=== PATIENT | female | born 1935 ===

== ENCOUNTER 2018-11-14 15:37 | Inpatient (IN) | payer MEDICARE, OTHER ==
[~2018-11-14] VITALS: Ht 154.9 cm; Wt 73.5 kg
--- NOTE | 2018-11-14 15:42 | NUR ---
BIB private ambulance from [facility] on 515 hold (GD) for admission to MHU. Pt has already been medically cleared at sending facility per telephone report from [place].
[2018-11-14] MEDS ORDERED: LINA290C PO (16:17)
[2018-11-14] MEDS ORDERED: BISA10SU61 RC (16:17)
[2018-11-14] MEDS ORDERED: GABA600T12 PO (16:17)
[2018-11-14] MEDS ORDERED: LINA145C PO (16:17)
[2018-11-14] MEDS ORDERED: BUPR150T5 PO (16:17)
[2018-11-14] MEDS ORDERED: BACI1CAP4 PO (16:17)
[2018-11-14] MEDS ORDERED: HYOS0.1273 PO (16:17)
[2018-11-14] MEDS ORDERED: ACET325T53 PO (16:17)
[2018-11-14] MEDS ORDERED: NYST5ORA PO (16:17)
[2018-11-14] MEDS ORDERED: POLY17PO4 PO (16:17)
[2018-11-14] MEDS ORDERED: CELE200C PO (16:17)
[2018-11-14] MEDS ORDERED: METH150T PO (16:17)
[2018-11-14] MEDS ORDERED: HYDR28.316 RC (16:17)
[2018-11-14] MEDS ORDERED: HYDR30SU3 RC (16:17)
[2018-11-14] MEDS ORDERED: MELA1TAB9 PO (16:17)
[2018-11-14] MEDS ORDERED: OMEP40CA37 PO (16:17)
--- NOTE | 2018-11-14 16:20 | NUR ---
Per pt is medically clear and may be trans to MHU. Pt trans with NAD noted.
[2018-11-14 16:30] VITALS: BP_SYST 128; BP_DIAS 72; BP_DIAS 92
--- NOTE | 2018-11-14 16:30 | NUR ---
Received patient from ER accompanied by Preston paz. Patient not in acute distress but noted to be disheveled and unkempt. Patient is alert and oriented x 3. Patient stating she has not eaten for 6 days and feels very hungry, offered snack and ensured from dietary that she will be served dinner. Patient denying suicidal ideation, cooperative and answered questions. Staff offered to help her shower but patient declined. Will continue to monitor.
[2018-11-14] MEDS ORDERED: TEMAZEPAM 7.5 MG CAPSULE PO PRN (16:45)
[2018-11-14] MEDS ORDERED: LORAZEPAM 0.5 MG TABLET PO PRN (16:45)
[2018-11-14] MEDS ORDERED: MAG HYDROX/AL HYDROX/SIMETH 30 ML LIQUID UDC PO PRN (16:45)
[2018-11-14] MEDS: ACETAMINOPHEN 325 MG TABLET PO PRN ×2 (18:30→20:46)
--- NOTE | 2018-11-14 18:34 | NUR ---
Patient was complaining of rectal pain and offered tylenol but patient refused.
[2018-11-14 20:21] VITALS: BP 105/78
[2018-11-14] MEDS ORDERED: BISACODYL 10 MG SUPP.RECT RC PRN (20:30)
[2018-11-14] MEDS ORDERED: ZOLPIDEM 5 MG TABLET PO PRN (20:30)
[2018-11-14] MEDS ORDERED: HYDROCORTISONE 2.5 % RECTAL CREAM 28.35 GM TUBE RC PRN (20:30)
[2018-11-14] MEDS ORDERED: HYDROCORTISONE RECTAL SUPP 25 MG EACH RC ONE ×2 (21:35→22:30)
--- NOTE | 2018-11-15 05:51 | NUR ---
GPS: Remain calm and cooperative with medications and care. slept 6:45 hrs through the night after Ambien 5 mg po given. resting in bed comfortably.continue plan of care.
[2018-11-15] MEDS: PANTOPRAZOLE SODIUM 40 MG TABLET.DR PO SCH ×2 (06:27→06:39)
--- NOTE | 2018-11-15 07:30 | NUR ---
GPS: Received patient asleep in bed. Noted per fast food shift lead, patient slept well las night. Bed in low position and side rails up x 2. Will continue to monitor and ensure comfort and safety.
[2018-11-15] MEDS: MIRALAX 17 GM POWD.PACK PO SCH (08:41)
[2018-11-15] MEDS: HYOSCYAMINE SULFATE 0.125 MG TABLET PO SCH ×3 (08:41→16:58)
[2018-11-15] MEDS: CELECOXIB 200 MG CAPSULE PO SCH (08:41)
[2018-11-15] MEDS ORDERED: Medication Not On Formulary EA (Linaclotide (Linzess) 290 MCG) PO SCH (09:00)
[2018-11-15] MEDS: MAGNESIUM HYDROXIDE 30 ML LIQUID UDC PO PRN ×2 (09:46→23:29)
[2018-11-15] MEDS: buPROPion XL 150 MG TAB.SR.24H PO SCH (12:37)
--- NOTE | 2018-11-15 14:45 | NUR ---
Discharge Planning: fat pressroom worker attempted to conduct social service evaluation, however, patient refused to participate and asked manager social media to return at a later date.
[2018-11-15 16:31] VITALS: BP 114/49
--- NOTE | 2018-11-15 18:45 | NUR ---
GPS: Patient is lying in bed, calm. Alert and oriented x 3. Patient repeatedly asking for laxative throughout the day for her constipation, noted with 1 small bowel movement this afternoon. Noted need to send urine sample for urinalysis, patient uncooperative in collecting sample, placed hat at her toilet. Denies suicidal ideation. No episode of agitation or restlessness throughout the shift, however patient did not leave her room today. Ensured safety and comfort.
[2018-11-15 20:00] VITALS: BP 111/51
[2018-11-15] MEDS: TRAZODONE 50 MG TABLET PO SCH (20:40)
[2018-11-15] MEDS: PHENYLEPHRINE/SHARK LIVER/CCB 1 EACH SUPP.RECT RC SCH (21:18)
[2018-11-16] MEDS: PANTOPRAZOLE SODIUM 40 MG TABLET.DR PO SCH (06:43)
[2018-11-16 07:09] LABS: ALANINE AMINOTRANSFERASE 22 U/L (14-59); ALKALINE PHOSPHATASE 123 U/L (50-136); ASPARTATE AMINOTRANSFERASE 14 U/L (15-37); BILIRUBIN,TOTAL 0.4 mg/dL (0.2-1.0); CARBON DIOXIDE 26 mmol/L (21-32); CHLORIDE 101 mmol/L (98-107); CHOLESTEROL 210 mg/dL (<200); CREATININE 1.7 mg/dL (0.6-1.3); GLUCOSE 98 mg/dL (74-106); HDL CHOLESTEROL 44 mg/dL (40-60); POTASSIUM 3.6 mmol/L (3.5-5.1); TOTAL PROTEIN, SERUM 6.1 g/dL (6.4-8.2); TRIGLYCERIDES 141 MG/DL (30-150); UREA NITROGEN, BLOOD 34 mg/dL (7-18)
[2018-11-16 07:11] LABS: THYROID STIMULATING HORMONE 2.207 mIU/mL (0.358-3.740)
[2018-11-16 07:30] VITALS: BP 83/44
[2018-11-16] MEDS: HYOSCYAMINE SULFATE 0.125 MG TABLET PO SCH ×3 (08:08→16:26)
[2018-11-16] MEDS: buPROPion XL 150 MG TAB.SR.24H PO SCH (08:08)
[2018-11-16] MEDS: MIRALAX 17 GM POWD.PACK PO SCH (08:08)
[2018-11-16] MEDS: CELECOXIB 200 MG CAPSULE PO SCH (08:08)
--- NOTE | 2018-11-16 14:55 | NUR ---
upon assessment, noted patients blood pressure was 96/43 heart rate, 71. patient denies any dizziness, nausea, or weakness. patient stated she just used the restroom and had a lot of diarrhea. patient is asymptomatic and shows no present sign/symptoms. educated patient to drink more fluids. will continue to monitor closely.
[2018-11-16 15:51] VITALS: BP 75/50
[2018-11-16 19:40] VITALS: BP 91/52
[2018-11-16] MEDS: TRAZODONE 50 MG TABLET PO SCH (20:22)
[2018-11-16] MEDS: ATORVASTATIN 10 MG TABLET PO SCH (20:22)
[2018-11-16] MEDS: PHENYLEPHRINE/SHARK LIVER/CCB 1 EACH SUPP.RECT RC SCH (20:22)
[2018-11-17] MEDS: PANTOPRAZOLE SODIUM 40 MG TABLET.DR PO SCH (06:10)
--- NOTE | 2018-11-17 06:36 | NUR ---
Patient is delusional. Complained of the script writer not being at the bedside the whole night. However, patient is alert and oriented x3. Denies SI. Compliant with medications. No adverse reaction noted.
[2018-11-17 07:30] VITALS: BP 90/51
[2018-11-17] MEDS: CELECOXIB 200 MG CAPSULE PO SCH (08:19)
[2018-11-17] MEDS: buPROPion XL 150 MG TAB.SR.24H PO SCH (08:19)
[2018-11-17] MEDS: HYOSCYAMINE SULFATE 0.125 MG TABLET PO SCH ×3 (08:19→16:16)
[2018-11-17] MEDS: MIRALAX 17 GM POWD.PACK PO SCH (08:20)
--- NOTE | 2018-11-17 08:40 | NUR ---
PT REQUESTED BY-PASS 14 DAYS HOLD JESSICA, COURT NOTIFIED WILL FAX JESSICA REQUEST TO COURT. Addendum: 11/17/18 at 1216 by ROXANNE DE LOS SANTOS RN ERROR ,WRONG PATIENT.
--- NOTE | 2018-11-17 12:09 | NUR ---
Initial Discharge Note: Patient is a 83 year old female who currently resides in her home alone [[address] [place] [address]]. Per patient, she would like to return to living at her home. Patient states she is able to provide herself with food, clothing and mcfp. Patient states she only stated she couldn't provide for these things because she was "tired of responsibility". Patient states that when she returns home, she does not want home health. Patient also states that she will be able to pay for a taxi back home. cloth worker will continue to collaborate with patient and MD on a safe and proper discharge.
[2018-11-17 16:16] VITALS: BP 91/57
--- NOTE | 2018-11-17 16:42 | NUR ---
1640H, PATIENTS ALERT, DENIES OF ANY PAIN AND DISCOMFORT.
[2018-11-17 20:03] VITALS: BP 115/52
[2018-11-17] MEDS: TRAZODONE 100 MG TABLET PO SCH (20:08)
[2018-11-17] MEDS: MAGNESIUM HYDROXIDE 30 ML LIQUID UDC PO PRN (20:08)
[2018-11-17] MEDS: ATORVASTATIN 10 MG TABLET PO SCH (20:08)
[2018-11-17] MEDS: PHENYLEPHRINE/SHARK LIVER/CCB 1 EACH SUPP.RECT RC SCH (20:45)
[2018-11-17] MEDS ORDERED: TRAZODONE 50 MG TABLET PO SCH (21:00)
--- NOTE | 2018-11-17 23:41 | NUR ---
gps: patient c/o anxiety. ativan 0.5 mg po given per patient requested.
--- NOTE | 2018-11-18 05:42 | NUR ---
GPS: REMAIN CALM AND COOPERATIVE. SLEPT 6 HRS THROUGH THE NIGHT. NO AGITATION NOTED AT THIS TIME. CONTINUE PLAN OF CARE.
[2018-11-18] MEDS: PANTOPRAZOLE SODIUM 40 MG TABLET.DR PO SCH (06:20)
[2018-11-18 07:30] VITALS: BP 106/28
[2018-11-18] MEDS: buPROPion XL 150 MG TAB.SR.24H PO SCH (09:05)
[2018-11-18] MEDS: MIRALAX 17 GM POWD.PACK PO SCH (09:05)
[2018-11-18] MEDS: HYOSCYAMINE SULFATE 0.125 MG TABLET PO SCH ×3 (09:05→16:38)
[2018-11-18] MEDS: CELECOXIB 200 MG CAPSULE PO SCH (09:05)
--- NOTE | 2018-11-18 12:01 | NUR ---
Firearms Report: lavender farm worker completed and submitted a [employer] firearms report for a 5250 GD certification.
[2018-11-18 12:21] VITALS: BP 84/54
[2018-11-18 16:00] VITALS: BP 110/51
--- NOTE | 2018-11-18 16:00 | NUR ---
Gps/Cook Italian Style Food- Had been interacting fairly well with her selected peers. Ambulates around with front wheel walker, safety reviewed and emphasized. Patient noted , likes to ambulates around with front wheel walker, socks/slippers offered.
[2018-11-18] MEDS: ATORVASTATIN 10 MG TABLET PO SCH (20:03)
[2018-11-18] MEDS: TRAZODONE 100 MG TABLET PO SCH (20:03)
[2018-11-18] MEDS: PHENYLEPHRINE/SHARK LIVER/CCB 1 EACH SUPP.RECT RC SCH (20:07)
[2018-11-18 21:21] VITALS: BP 120/55
[2018-11-18 21:28] LABS: *CREATININE,URINE 22.1 mg/dL (30-125); *URINE TOTAL PROTEIN RANDOM < 6.0 mg/dL (<150/24HR)
[2018-11-18 21:36] LABS: *BILIRUBIN,URIN NEGATIVE (NEGATIVE); *BLOOD, URINE Trace-lysed (NEGATIVE); *CLARITY,URINE CLEAR (CLEAR); *COLOR,URINE LIGHT YELLOW (YELLOW); *KETONES,URINE NEGATIVE (NEGATIVE); *PROTEIN,URINE NEGATIVE (NEGATIVE); *UROBILINOGEN,URINE 0.2 E.U./dl (NORMAL); LEUKOCYTE ESTERASE ,URINE NEGATIVE (NEGATIVE); NITRITE, URINE NEGATIVE (NEGATIVE); UGLUCOSE NEGATIVE (NEGATIVE)
[2018-11-18 21:45] LABS: RBC,URINE 0-3 /HPF (0-3); SQUAMOUS EPITHELIAL CELL,UR FEW /HPF (NONE SEEN); WBC,URINE 0-3 /HPF (0-3)
[2018-11-19] MEDS: PANTOPRAZOLE SODIUM 40 MG TABLET.DR PO SCH (06:15)
--- NOTE | 2018-11-19 06:20 | NUR ---
GPS: REMAIN CALM AND COOPERATIVE WITH MEDICATIONS AND CARE. NO AGITATION NOTED AT THIS TIME. NO C/O PAIN OR DISCOMFORT AT THIS TIME.DENIES SI @ THIS TIME. RESTING IN BED COMFORTABLY.
[2018-11-19 07:30] VITALS: BP 126/57
[2018-11-19] MEDS: HYOSCYAMINE SULFATE 0.125 MG TABLET PO SCH ×3 (08:09→17:39)
[2018-11-19] MEDS: MIRALAX 17 GM POWD.PACK PO SCH (08:12)
[2018-11-19] MEDS: CELECOXIB 200 MG CAPSULE PO SCH (08:12)
[2018-11-19] MEDS: buPROPion XL 150 MG TAB.SR.24H PO SCH (08:12)
--- NOTE | 2018-11-19 11:34 | NUR ---
Gps/Parts Department Supervisor- Reviewed medications, diet, safety, emphasized follow up with her Doctors, patient and daughters verbalized understanding. All belongings and patient's own medications(eye gtts) returned back to patient.Patient in good spirit, no new c/o offered at this time. Addendum: 11/19/18 at 1245 by VENANCIO ROE LVN Charted on a wrong patient
--- NOTE | 2018-11-19 15:20 | NUR ---
Gps/Ski Patrol Officer- Patient remains in her room in bed, refusing to attend her group therapy, claimed she does not feel good, v/s stable not initiating any simple tasks to assist self, encouraged to comb her hair, fluids offered and encouraged
--- NOTE | 2018-11-19 15:33 | NUR ---
Discharge Planning: Patient was scheduled to discharge today and return home with home health. However, when approached by Dr. Davis about discharge, patient stated she wasn't feeling well and couldn't return home. insulation worker joined Dr. Davis in a second conversation about discharge at patient bedside. Patient again stated that she felt "sick" and stated "I am dying". Patient further stated she could not return to her home. Dr. Davis asked patient to sign as voluntary, but patient refused so was placed on a 14-day hold (1298). Patient is perceived to be manipulative. insulation worker has begun to look for SNF placement for patient as she has stated she can't return home. insulation worker sent referrals to [facility] [place] [facility] [[address] [place] [address]; ] and [facility] [[address] [place] [address]; ]. insulation worker awaiting response from facilities.
[2018-11-19] MEDS: ACETAMINOPHEN 325 MG TABLET PO PRN (15:35)
[2018-11-19 16:00] VITALS: BP 114/59
--- NOTE | 2018-11-19 17:45 | NUR ---
Gps/Roller Coaster Engineer- Poor initiation , claimed she does not feel weel, reassure v/s stable, needed to eat and drink fluids, encouraged. Set up for dinner, assisted with her food few bites tolerated fairly well. Claimed she's worried she didnt have BM today, reminded pt. she had 2 bowel good movement yesterday .
[2018-11-19] MEDS: PHENYLEPHRINE/SHARK LIVER/CCB 1 EACH SUPP.RECT RC SCH (21:00)
[2018-11-19] MEDS: TRAZODONE 100 MG TABLET PO SCH (21:16)
[2018-11-19] MEDS: ATORVASTATIN 10 MG TABLET PO SCH (21:16)
[2018-11-19 21:21] VITALS: BP 100/50
[2018-11-19] MEDS: MAGNESIUM HYDROXIDE 30 ML LIQUID UDC PO PRN (21:29)
[2018-11-20] MEDS: PANTOPRAZOLE SODIUM 40 MG TABLET.DR PO SCH (06:56)
[2018-11-20 07:30] VITALS: BP 105/34
[2018-11-20] MEDS: HYOSCYAMINE SULFATE 0.125 MG TABLET PO SCH ×3 (08:35→16:47)
[2018-11-20] MEDS: buPROPion XL 150 MG TAB.SR.24H PO SCH (08:36)
[2018-11-20] MEDS: MIRALAX 17 GM POWD.PACK PO SCH (08:36)
[2018-11-20] MEDS: CELECOXIB 200 MG CAPSULE PO SCH (08:36)
--- NOTE | 2018-11-20 11:34 | NUR ---
Gps/Sql Developer- Remains with poor motivations, encouraged to get oob to shower, go to actibity room attend group therapy, needed prompting to eat aswell as to take routine meds, flat affect, patient wants to be left alone . Patient to have someone fhelp her fixed in bed, informed pt. she can move,and able to repositioned self in bed. Verbalized feelings of being upset, no one wants to help her/pt. Patient was instructed /encouraged to be ind. in her self care.
[2018-11-20 16:00] VITALS: BP 115/57
[2018-11-20] MEDS: ATORVASTATIN 10 MG TABLET PO SCH (20:24)
[2018-11-20] MEDS: TRAZODONE 100 MG TABLET PO SCH (20:24)
[2018-11-20] MEDS: PHENYLEPHRINE/SHARK LIVER/CCB 1 EACH SUPP.RECT RC SCH (20:27)
[2018-11-20] MEDS: ACETAMINOPHEN 325 MG TABLET PO PRN (21:31)
[2018-11-20 22:53] VITALS: BP 113/61
--- NOTE | 2018-11-21 03:33 | NUR ---
Patient received in bed, able to make needs known, depressive mood, flat affect. Medication given as ordered, well tolerated. Asked for help to go to the bathroom. assisted her. Complained of abdominal cramp and excess gas. Tylenol 650 mg and Maalox Suspension 30 ml given @2200.
[2018-11-21] MEDS: PANTOPRAZOLE SODIUM 40 MG TABLET.DR PO SCH (06:53)
[2018-11-21 07:30] VITALS: BP 100/47
[2018-11-21] MEDS: MIRALAX 17 GM POWD.PACK PO SCH (08:59)
[2018-11-21] MEDS: buPROPion XL 150 MG TAB.SR.24H PO SCH (08:59)
[2018-11-21] MEDS: HYOSCYAMINE SULFATE 0.125 MG TABLET PO SCH ×3 (08:59→17:44)
[2018-11-21] MEDS: CELECOXIB 200 MG CAPSULE PO SCH (08:59)
[2018-11-21 10:39] LABS: CARBON DIOXIDE 27 mmol/L (21-32); CHLORIDE 104 mmol/L (98-107); CREATININE 1.7 mg/dL (0.6-1.3); GLUCOSE 198 mg/dL (74-106); POTASSIUM 4.2 mmol/L (3.5-5.1); UREA NITROGEN, BLOOD 29 mg/dL (7-18)
[2018-11-21 16:00] VITALS: BP 116/45
[2018-11-21] MEDS: MAGNESIUM HYDROXIDE 30 ML LIQUID UDC PO PRN (20:03)
[2018-11-21] MEDS: TRAZODONE 100 MG TABLET PO SCH (20:03)
[2018-11-21] MEDS: ATORVASTATIN 10 MG TABLET PO SCH (20:03)
[2018-11-21] MEDS: PHENYLEPHRINE/SHARK LIVER/CCB 1 EACH SUPP.RECT RC SCH (20:07)
[2018-11-21 20:30] VITALS: BP 117/68
--- NOTE | 2018-11-22 05:57 | NUR ---
GPS: REMAIN CALM AND COOPERATIVE WITH MEDICATIONS AND CARE. NO AGITATION NOTED AT THIS TIME. NO C/O PAIN OR DISCOMFORT AT THIS TIME. MOM EFFECTIVE PATIENT HAD LARGE BM. DENIES SI @ THIS TIME. RESTING IN BED COMFORTABLY. SLEPT 6:30 HRS THROUGH THE NIGHT.
[2018-11-22] MEDS: PANTOPRAZOLE SODIUM 40 MG TABLET.DR PO SCH (06:11)
[2018-11-22 07:30] VITALS: BP 95/51
[2018-11-22 07:44] LABS: BASOPHILS # (AUTO) 0.1 K/uL (0.0-8.0); BASOPHILS % (AUTO) 0.7 % (0.0-2.0); EOSINOPHILS # (AUTO) 0.3 K/uL (0.0-0.7); EOSINOPHILS % (AUTO) 3.7 % (0.0-7.0); HEMATOCRIT 38.4 % (31.2-41.9); HEMOGLOBIN 12.7 g/dL (10.9-14.3); LYMPHOCYTES # (AUTO) 2.3 K/uL (20.0-40.0); MEAN CORPUSCULAR HEMOGLOBIN 29.7 uug (24.7-32.8); MEAN CORPUSCULAR HGB CONC 33 g/dL (32.3-35.6); MEAN CORPUSCULAR VOLUME 89.9 fL (75.5-95.3); MONOCYTES # (AUTO) 0.7 K/uL (2.0-10.0); NEUTROPHILS # (AUTO) 4.3 K/uL (1.8-8.9); NEUTROPHILS % (AUTO) 56.6 % (38.5-71.5); PLATELET COUNT (AUTO) 210 K/uL (179-408); RED BLOOD CELL COUNT(AUTO) 4.27 MIL/uL (3.63-4.92); WHITE BLOOD COUNT (AUTO) 7.6 K/uL (3.8-11.8)
[2018-11-22 08:08] LABS: ALANINE AMINOTRANSFERASE 18 U/L (14-59); ALKALINE PHOSPHATASE 113 U/L (50-136); ASPARTATE AMINOTRANSFERASE 13 U/L (15-37); BILIRUBIN,TOTAL 0.3 mg/dL (0.2-1.0); CARBON DIOXIDE 30 mmol/L (21-32); CHLORIDE 105 mmol/L (98-107); CREATININE 1.9 mg/dL (0.6-1.3); GLUCOSE 100 mg/dL (74-106); MAGNESIUM 2.3 mg/dL (1.8-2.4); PHOSPHOROUS 3.4 mg/dL (2.5-4.9); POTASSIUM 4.3 mmol/L (3.5-5.1); TOTAL PROTEIN, SERUM 6.3 g/dL (6.4-8.2); UREA NITROGEN, BLOOD 28 mg/dL (7-18)
[2018-11-22] MEDS: buPROPion XL 150 MG TAB.SR.24H PO SCH (08:18)
[2018-11-22] MEDS: HYOSCYAMINE SULFATE 0.125 MG TABLET PO SCH ×3 (08:19→17:35)
[2018-11-22] MEDS: CELECOXIB 200 MG CAPSULE PO SCH (08:19)
[2018-11-22] MEDS: MIRALAX 17 GM POWD.PACK PO SCH (08:20)
[2018-11-22] MEDS ORDERED: IV NS 1000 ML 1,000 ML IV ONE (09:00)
--- NOTE | 2018-11-22 12:00 | NUR ---
PT IS CONTINUING TO REFUSE IV FLUIDS. "I DONT NEED ANY OF THAT, YOU DONT UNDERSTAND ANYTHING" EXPLAINED IMPORTANCE OF IV FLUIDS, PT CONTINUES TO REFUSE. DR VARGAS AWARE PT IS REFUSING, WILL ENCOURAGE PO INTAKE.
--- NOTE | 2018-11-22 12:20 | NUR ---
Discharge Planning: Patient has been denied placement by [facility] SNF [phone]; contact: LORENA, network development coordinator] and [facility] [phone]; contact: Aron, network development coordinator] due to insurance. Patient was admitted under Medicare, but her insurance with the New Year and it is now managed Medicare through [facility] [[phone]]. Per our early childhood education coordinator, JOSH, no authorization is needed, but if patient needs outpatient follow-up then it should be arranged through [facility]. grout worker continuing to look for SNF placement and has sent fax to [facility] [[address] [place] [address]; ]. grout worker awaiting response.
--- NOTE | 2018-11-22 15:23 | NUR ---
Discharge Planning: reinforcing iron worker helper had extensive conversation with patient regarding admission in the MHU and expectation to attend group. Patient has not attended group since beginning of admission. reinforcing iron worker helper along with Kenyatta, recreational therapist, spoke with patient and encouraged participation in group. Per patient, she states "I am sick and my hair is tangled". Patient refused to attend. reinforcing iron worker helper offered patient to attend to group scheduled later toward the evening and patient agreed to go. reinforcing iron worker helper had separate conversation with patient regarding discharge plan. Patient again stated "I am sick". reinforcing iron worker helper asked patient to elaborate and patient stated "I am continually nauseas and have sores in my mouth". Per patient chart, patient has received Maalox Suspension on 11/20/2018 for upset stomach. Patient has not received any other medications for nausea, nor have any been requested by patient. reinforcing iron worker helper asked patient how this prevents self-care and patient stated "I am sick". reinforcing iron worker helper offered to help patient get assistance in her home with a caregiver and patient states "I can't afford it". reinforcing iron worker helper offered patient home health services and patient stated "I don't know". Patient is perceived to be manipulative. reinforcing iron worker helper [facility] [[phone]] agency service representative, Yohana [ref#[phone]], who provided a list of contracted senior care facilities including [facility] [[address] [place] [address]; /fax: [phone]], [facility] [[address] [place] [address]; /fax: ], and [facility] [[address] [place] [address]; /fax: ]. reinforcing iron worker helper sent fax referrals to all of these facilities and is currently awaiting return response. Addendum: 11/22/18 at 1631 by ANGELICA RESENDIZ Additional Information: Patient refused to go to evening group when offered despite original agreement to attending. Per patient, she will attend group tomorrow.
[2018-11-22 15:30] VITALS: BP 122/43
[2018-11-22 20:18] VITALS: BP 126/56
[2018-11-22] MEDS: QUETIAPINE FUMARATE 25 MG TABLET PO SCH (21:13)
[2018-11-22] MEDS: PHENYLEPHRINE/SHARK LIVER/CCB 1 EACH SUPP.RECT RC SCH (21:15)
[2018-11-22] MEDS: ATORVASTATIN 10 MG TABLET PO SCH (21:15)
--- NOTE | 2018-11-22 21:20 | NUR ---
Recieved report from am shift Rn. Pt lying in bed refusing to attend any groups medication complaint with hs meds. Client focusing on her bowels requesting M.O.M. advised pt she had 2 bms and afternoon bm was loose. Also advised that I would not administer M.O.M without my Charge Nurse consent. Notified Charge nurse which she is not to get M.O.M.
[2018-11-23] MEDS: PANTOPRAZOLE SODIUM 40 MG TABLET.DR PO SCH (06:36)
--- NOTE | 2018-11-23 06:41 | NUR ---
Awake in bed slept 8 hour through the night. medication compliant for her protonix this am.
[2018-11-23 07:30] VITALS: BP 107/49
[2018-11-23] MEDS: HYOSCYAMINE SULFATE 0.125 MG TABLET PO SCH ×3 (08:00→17:24)
[2018-11-23] MEDS: MIRALAX 17 GM POWD.PACK PO SCH (09:00)
[2018-11-23] MEDS: buPROPion XL 150 MG TAB.SR.24H PO SCH ×2 (09:00→12:20)
--- NOTE | 2018-11-23 11:09 | NUR ---
Discharge Planning: table worker packager had discussion with patient at bedside regarding group attendance and discharge planning. table worker packager reminded patient of her "promise" from yesterday (11/22-see DC note) that she would attend group today. Patient states "Why do I have to attend group anyway?". table worker packager explained that as a patient of the mental health unit, that it it part of her treatment. Patient stated "I don't even need to be here for mental health". Patient then stated she does not want to attend group as she uses a walker. Patient states "I can't walk", though social problems specialist witnessed patient walk on 11/19/2017. table worker packager asked that patient sit in community room for group even if she does not participate. Patient agreed and social problems specialist will remind patient again when the group is starting. table worker packager then facilitated conversation about discharge plan. Patient states "I can't go back home because I have to use a walker to get to the bathroom". Patient states "I want a group home facility". table worker packager informed patient that the option of a group home facility is dependent upon her insurance [which is now [employer] due to patient Medicare expiring on 11/16/2018] and upon having a skilled need. Patient did not respond. table worker packager is still waiting to hear back from three contracted facilities [see previous DC note].
--- NOTE | 2018-11-23 13:08 | NUR ---
Discharge Planning: farmworkers received return phone call from Alvaro at [facility]. Per Alvaro, he would like to come and asses patient today for potential SNF acceptance.
[2018-11-23 16:00] VITALS: BP 110/56
[2018-11-23 20:00] VITALS: BP 129/58
[2018-11-23] MEDS: QUETIAPINE FUMARATE 25 MG TABLET PO SCH (20:17)
[2018-11-23] MEDS: PHENYLEPHRINE/SHARK LIVER/CCB 1 EACH SUPP.RECT RC SCH (20:17)
[2018-11-23] MEDS: ATORVASTATIN 10 MG TABLET PO SCH (20:17)
[2018-11-23] MEDS: MAGNESIUM HYDROXIDE 30 ML LIQUID UDC PO PRN (20:26)
[2018-11-24] MEDS: PANTOPRAZOLE SODIUM 40 MG TABLET.DR PO SCH (06:38)
[2018-11-24 07:30] VITALS: BP 116/66
[2018-11-24] MEDS: HYOSCYAMINE SULFATE 0.125 MG TABLET PO SCH ×3 (08:47→17:18)
[2018-11-24] MEDS: buPROPion XL 150 MG TAB.SR.24H PO SCH (08:48)
[2018-11-24] MEDS: MIRALAX 17 GM POWD.PACK PO SCH (08:48)
--- NOTE | 2018-11-24 13:00 | NUR ---
GROUP NOTE: SW offered patient to attend group today. Patient replied, "Thank you." When asked if patient wanted to attend, she refused. ASTRID will continue to encourage pt to attend group during scheduled time in the future.
--- NOTE | 2018-11-24 15:19 | NUR ---
Discharge Planning: Patient was not accepted at [facility] [[address] [place] [address]; /fax: ] per admissions Olegario prieto. Patient will be assessed today by Sayra, patient relations coordinator, at [facility] [[address] [place] [address]; /fax: ] today at 4:00pm. Patient is now thinking she would like to return home with home health per conversation with patient MD, Dr. Davis.
[2018-11-24 16:02] VITALS: BP 115/52
[2018-11-24] MEDS ORDERED: MAGNESIUM HYDROXIDE 30 ML LIQUID UDC PO PRN (17:15)
[2018-11-24 19:58] VITALS: BP 136/60
--- NOTE | 2018-11-24 20:00 | NUR ---
RECEIVED PATIENT IN HER ROOM IN BED. SHE IS NOTED AWAKE A/O X 2. SHE IS ABLE TO AMBULATE TO A WALKER AND ABLE TO MAKE HER NEEDS KNOWN. SHE IS NOTED EASILY IRRITABLE/BLUNTED AFFECT LABILE BX. CONTINUE PREOCCUPIED WITH BM. CONTINUES ASKING FOR LAXATIVES. PT WAS REASSURED AND REDIRECTED. V/S STABLE AT THIS TIME. PATIENT WAS REASSURED OF HER SAFETY. WILL CONTINUE TO MONITOR CLOSELY.
[2018-11-24] MEDS: ATORVASTATIN 10 MG TABLET PO SCH (20:32)
[2018-11-24] MEDS: PHENYLEPHRINE/SHARK LIVER/CCB 1 EACH SUPP.RECT RC SCH (20:32)
[2018-11-24] MEDS: QUETIAPINE FUMARATE 25 MG TABLET PO SCH (20:32)
[2018-11-25 07:00] LABS: BASOPHILS # (AUTO) 0.1 K/uL (0.0-8.0); BASOPHILS % (AUTO) 0.9 % (0.0-2.0); EOSINOPHILS # (AUTO) 0.4 K/uL (0.0-0.7); EOSINOPHILS % (AUTO) 4.7 % (0.0-7.0); HEMATOCRIT 37.7 % (31.2-41.9); HEMOGLOBIN 12.7 g/dL (10.9-14.3); LYMPHOCYTES # (AUTO) 2.6 K/uL (20.0-40.0); LYMPHOCYTES % (AUTO) 33.6 % (20.5-51.5); MEAN CORPUSCULAR HEMOGLOBIN 30.3 uug (24.7-32.8); MEAN CORPUSCULAR HGB CONC 34 g/dL (32.3-35.6); MEAN CORPUSCULAR VOLUME 89.8 fL (75.5-95.3); MONOCYTES # (AUTO) 0.6 K/uL (2.0-10.0); NEUTROPHILS # (AUTO) 4.1 K/uL (1.8-8.9); NEUTROPHILS % (AUTO) 52.8 % (38.5-71.5); PLATELET COUNT (AUTO) 207 K/uL (179-408); WHITE BLOOD COUNT (AUTO) 7.8 K/uL (3.8-11.8)
[2018-11-25 07:17] LABS: ALANINE AMINOTRANSFERASE 18 U/L (14-59); ALKALINE PHOSPHATASE 109 U/L (50-136); ASPARTATE AMINOTRANSFERASE 11 U/L (15-37); BILIRUBIN,TOTAL 0.3 mg/dL (0.2-1.0); CARBON DIOXIDE 27 mmol/L (21-32); CHLORIDE 108 mmol/L (98-107); CREATININE 1.5 mg/dL (0.6-1.3); GLUCOSE 89 mg/dL (74-106); MAGNESIUM 2.4 mg/dL (1.8-2.4); PHOSPHOROUS 3.6 mg/dL (2.5-4.9); POTASSIUM 4.6 mmol/L (3.5-5.1); TOTAL PROTEIN, SERUM 6.3 g/dL (6.4-8.2); UREA NITROGEN, BLOOD 25 mg/dL (7-18)
[2018-11-25] MEDS: PANTOPRAZOLE SODIUM 40 MG TABLET.DR PO SCH (07:18)
--- NOTE | 2018-11-25 07:28 | NUR ---
PATIENT SLEPT FOR APPROX 6.30 HRS THROUGHOUT THE NIGHT. CONTINUE EASILY IRRITABLE, VERBALLY ABUSIVE. SHE ACCUSED THIS SCREEN REPAIRER CRUSHER OF NOT GIVEN HER SUPPOSITORY FOR HER HEMORRHOIDS. MULTIPLE REDIRECTION GIVEN, YET INEFFECTIVE. WILL CONTINUE TO MONITOR.
[2018-11-25 07:30] VITALS: BP 118/59
[2018-11-25] MEDS: HYOSCYAMINE SULFATE 0.125 MG TABLET PO SCH ×3 (08:51→17:48)
[2018-11-25] MEDS: buPROPion XL 150 MG TAB.SR.24H PO SCH (08:51)
[2018-11-25] MEDS: MIRALAX 17 GM POWD.PACK PO SCH (08:52)
--- NOTE | 2018-11-25 11:42 | NUR ---
Discharge Planning: tipple worker called [facility] [[phone]] to arrange home health for patient. tipple worker was transferred to multiple people, but was finally transferred to correct person, Beatris [[phone]], who handles patients in "Region [place]". tipple worker left voicemail for Beatris indicating nature of call and requested return phone call. tipple worker awaiting call back.
--- NOTE | 2018-11-25 14:44 | NUR ---
Discharge Planning: experimental worker followed up on SNF inquiries. Per admissions department at [facility] [[address] [place] [address]; ], patient is not accepted due to behavioral issues. experimental worker in contact with Sayra, team coordinator, at [facility] [[address] [place] [address]; ] who states that patient has been "clinically approved" but that the facility currently has no beds available so cannot start the authorization process until 11/29/18. experimental worker to check back in with Sayra on Thursday.
--- NOTE | 2018-11-25 14:50 | NUR ---
Discharge Planning: dam worker, accompanied by Dr. Davis, had conversation with patient about discharge plan. dam worker offered patient two choices of possibly going to a SNF pending insurance authorization and accepting facility or returning to her home with home health. Per patient, she states she feels "awful" and has "diarrhea". When asked how she was feeling mentally, patient did not answer. Patient was told that she would eventually have to discharge from mental health unit and that her medical issues can be treated as an outpatient as she was medically cleared to be in MHU initially. Patient continued to state "I don't feel good". Patient is perceived as manipulative. dam worker asked medical MD to have additional consultation with patient regarding her medical complaints. dam worker will continue to collaborate with patient and MD and plan for a safe and proper discharge for patient.
[2018-11-25 16:11] VITALS: BP 125/71
--- NOTE | 2018-11-25 19:35 | NUR ---
RECEIVED PATIENT IN HER ROOM IN BED. SHE IS NOTED AWAKE A/O X 3. UPON APPROACHED, SHE IS NOTED IRRITABLE, DEMANDING, MANIPULATIVE VERBALLY AGGRESSIVE WITH STAFF AND ARGUMENTATIVE. PATIENT WAS REASSURED FOR HER SAFETY, SHE WAS ALSO ENCOURAGE TO VERBALIZED FEELINGS. PATIENT ABLE TO AMBULATE WITH STEADY GAIT WITH THE AID OF A FWW. V/S STABLE AT THIS TIME. WILL CONTINUE TO MONITOR.
[2018-11-25] MEDS: ATORVASTATIN 10 MG TABLET PO SCH (20:41)
[2018-11-25 21:00] VITALS: BP 138/75
[2018-11-25] MEDS ORDERED: QUETIAPINE FUMARATE 25 MG TABLET PO SCH (21:00)
[2018-11-25] MEDS ORDERED: QUETIAPINE FUMARATE 100 MG TABLET PO SCH (21:00)
[2018-11-25] MEDS: PHENYLEPHRINE/SHARK LIVER/CCB 1 EACH SUPP.RECT RC SCH (21:06)
[2018-11-25] MEDS: ACETAMINOPHEN 325 MG TABLET PO PRN (21:09)
[2018-11-25 23:41] LABS: *BILIRUBIN,URIN NEGATIVE (NEGATIVE); *BLOOD, URINE NEGATIVE (NEGATIVE); *CLARITY,URINE CLEAR (CLEAR); *COLOR,URINE YELLOW (YELLOW); *KETONES,URINE NEGATIVE (NEGATIVE); *PROTEIN,URINE NEGATIVE (NEGATIVE); *UROBILINOGEN,URINE 0.2 E.U./dl (NORMAL); LEUKOCYTE ESTERASE ,URINE NEGATIVE (NEGATIVE); NITRITE, URINE NEGATIVE (NEGATIVE); UGLUCOSE NEGATIVE (NEGATIVE)
[2018-11-25 23:47] LABS: *URINE TOTAL PROTEIN RANDOM < 6.0 mg/dL (<150/24HR); BACTERIA,URINE NONE SEEN /HPF (NONE SEEN); RBC,URINE 0-3 /HPF (0-3); SQUAMOUS EPITHELIAL CELL,UR FEW /HPF (NONE SEEN)
[2018-11-25 23:53] LABS: *CREATININE,URINE 30.5 mg/dL (30-125)
[2018-11-26] MEDS: PANTOPRAZOLE SODIUM 40 MG TABLET.DR PO SCH (06:45)
[2018-11-26 07:30] VITALS: BP 105/41
[2018-11-26] MEDS: HYOSCYAMINE SULFATE 0.125 MG TABLET PO SCH ×2 (08:40→12:00)
[2018-11-26] MEDS: MIRALAX 17 GM POWD.PACK PO SCH (08:40)
[2018-11-26] MEDS: buPROPion XL 150 MG TAB.SR.24H PO SCH (08:41)
--- NOTE | 2018-11-26 10:06 | NUR ---
Discharge Planning: SW attempted to contact Beatris out of [place] [facility] for [facility] to arrange Home Health for this patient ([phone]). There was no answer, and ASTRID left a message for a return call for pt's pending discharge today. ASTRID will continue to follow-up.
--- NOTE | 2018-11-26 12:36 | NUR ---
DC Note: Patient will be discharged back to her home [[address] [place] [address]; [phone]] where she lives alone. Transportation will be provided taxi at 2:00pm. Taxi voucher has been provided to patient's DIGITAL X RAY SERVICE ENGINEER, Corrie. Patient is alert and oriented x3, denies SI/HI, and is able to plan for self-care. Per conversation with patient, she will use a grocery delivery service which she has uses in the past. Patient was also provided with information about food hare in her area. shellfish bed worker is arranging home health for medication management for patient and is currently awaiting authorization from [facility] [[phone]; Contact: Phoebe]. [facility], but it with the New Year and patient is now an HMO managed Medicare through [employer]. Per Patient, she is aware of this as she wanted to save money so switched to an HMO. Patient is aware and agreeable with discharge plan. Patient currently sees Dr. Kristyn De La Cruz [[address] [place] [address]; ] as her PCP. shellfish bed worker awaiting follow-up appointments for psychiatry and psychotherapy from [facility] and will follow-up with times. Continuing care packets will be sent shellfish bed worker has sent continuing care packet to MD offices. SW will follow-up with patient when her outpatient Psych appointments have been made and when Home Health has been authorized. shellfish bed worker has provided patient with mental health resources including [facility] Crisis Line , Abbi Bowers , and the National Suicide Prevention Lifeline .
--- NOTE | 2018-11-26 13:30 | NUR ---
Gps/Hospital Receptionist- Reviewed mediciations/prescriptions, diet, safety, skin care, follw up with Primary Medical Doctor, reviewed diet, reviewed discharged instructions, patient verbalized understanding. Front wheel walker was provided to patient as requested. Discharged via taxi in good spirit, no c/o offered..
--- NOTE | 2018-11-30 10:19 | NUR ---
Post DC Note: correction worker received phone call from case brieferPhoebe [[phone] ext. [phone]], at [facility] providing information for home health. Patient has been accepted at [facility] [[phone]] and they will follow-up with patient to set-up appointment. correction worker also received phone call from Ayde [[phone] ext. [phone]], case briefer at [facility], who is setting up after care appointments. Per Ayde, she is still working on setting up appointments and will call back when they have been made. correction worker called [[phone]] and spoke to patient and informed her of information. Patient is agreeable.
== END 2018-11-26 13:30 | disposition home health service (06) | DRG 881 ==
LOC: ER 15:39 → GPS 16:17
PROVIDERS: ADMIT Psychiatry & Neurology Psychiatry; ATTEND Nurse Practitioner Acute Care
PROC: 0HBRXZZ Excision of Toe Nail, External Approach (ICD-10-PCS; principal; 2018-11-17)
DX: F32.9 Major depressive disorder, single episode, unspecified (principal); N17.0 Acute kidney failure with tubular necrosis; F60.7 Dependent personality disorder; E78.5 Hyperlipidemia, unspecified; E89.0 Postprocedural hypothyroidism; E66.9 Obesity, unspecified; Z68.30 Body mass index [BMI] 30.0-30.9, adult; Z71.3 Dietary counseling and surveillance; K58.1 Irritable bowel syndrome with constipation; K21.9 Gastro-esophageal reflux disease without esophagitis; Z87.891 Personal history of nicotine dependence; Z90.49 Acquired absence of other specified parts of digestive tract; Z79.899 Other long term (current) drug therapy; L60.3 Nail dystrophy; M79.672 Pain in left foot; M79.671 Pain in right foot; Z88.1 Allergy status to other antibiotic agents; T39.395A Adverse effect of other nonsteroidal anti-inflammatory drugs [NSAID], initial encounter; Y92.019 Unspecified place in single-family (private) house as the place of occurrence of the external cause; N32.89 Other specified disorders of bladder; I70.0 Atherosclerosis of aorta
CPT/HCPCS: 36415; 71045; 76770; 83735; 84100; 84156; 84300; 84443; 85025; 87086; 93005; A4663; J7030